=== PATIENT | male | born 1930 | race Caucasian/White ===

== ENCOUNTER → 2016-04-27 | Outpatient (CLI) | payer MEDICARE ==
[~2016-04-27] MED LIST: AC325T PO; ALBU2.5V12 INH; AMIO100T4 PO; AMIO200T7 PO; AML5T PO; AMLO10TA82 PO; CALC300T10 PO; CALC600T12 PO; CEFD300C PO; DOCU-243 PO; DOCU100C8 PO; GFN600TCR PO; HYDR-3702 PO; MAG30ORA PO; MAGN400O7 PO; METO25TA60 PO; MTP50T PO; ONDAN4ODT PO; POLY17PO2 PO; PRV20T PO; WRF3T PO
== END ==
LOC: LAB 15:16
PROVIDERS: ATTEND Family Medicine
DX: E03.4 Atrophy of thyroid (acquired) (principal)
CPT/HCPCS: 36415; 84436; 84439; 84443; 84481

== ENCOUNTER → 2016-05-02 | Outpatient (CLI) | payer MEDICARE ==
--- NOTE | 2016-05-02 13:55 | Diagnostic Imaging Report ---
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 EXAM: Axial CT scan of the brain performed without IV contrast. Coronal and sagittal reformatted images were created. COMPARISON: None. FINDINGS: There is no evidence of acute cerebral infarct, intracranial hemorrhage, or gross mass effect. There is focal and patchy areas of low-attenuation white matter changes seen throughout both cerebral hemispheres, suspected to represent chronic small vessel ischemic disease. There is brain parenchymal volume loss which is most pronounced involving the medial temporal lobe regions. The pituitary gland, sella, and suprasellar regions are unremarkable as visualized. There is normal sahni-white matter distinction. There is no significant midline shift or herniation. There is no evidence of hydrocephalus. The basal cisterns are unremarkable. The skull, extracranial soft tissue, and orbits are unremarkable. The paranasal sinuses are unremarkable. IMPRESSION: 1: There is no evidence of acute intracranial process. If there is continued concern for acute cerebral infarct, then MRI of the brain would better evaluate. 2: Likely brain parenchymal chronic small vessel ischemic disease. 3: Brain parenchymal volume loss with the medial temporal lobe regions affected the most. Dictated by: Dictated on workstation # [id number]
--- NOTE | 2016-05-02 13:59 | Diagnostic Imaging Report ---
PROCEDURE: CT chest without contrast. TECHNIQUE: Multiple contiguous axial images were obtained through the chest without the use of intravenous contrast. Indication: Followup left upper lobe consolidation, recent cerebral vascular infarction. Comparison: Chest x-ray 01/24/2016. Discussion: Exam is mildly degraded by patient respiratory motion. Subsegmental atelectasis is present within the dependent lungs. There is no residual consolidation identified within the left upper lobe. No underlying pulmonary nodule identified. The pulmonary arteries are dilated measuring up to 2.8 cm on the right and 3.0 cm on the left, consistent with underlying pulmonary artery hypertension. Mild aneurysmal dilatation of the ascending aorta measuring 4.4 cm. The aortic arch is normal in configuration. Mild scattered atherosclerotic disease is noted. Mild cardiomegaly is noted. No mediastinal, hilar, or axillary adenopathy. Heterogenous appearance of the liver is a nonspecific finding. There appears to be multiple small low-attenuation foci noted diffusely throughout the liver which could be seen with metastatic disease or other chronic processes such as cysts or Caroli's disease. Recommend clinical correlation and dedicated imaging of the liver with either ultrasound or multiphase contrast-enhanced CT. Probable atrophy of the bilateral kidneys is incompletely viewed. A cyst is noted within an otherwise contracted gallbladder. The remainder of the visualized upper abdomen is unremarkable. No acute osseous abnormality is identified. Impression: 1. Abnormal appearance of the liver is a nonspecific finding and metastatic disease is not excluded. Recommend clinical correlation and dedicated imaging. 2. Interval resolution of left upper lobe pneumonia. No underlying consolidation or pulmonary nodule is identified otherwise. 3. Mild aneurysmal dilatation of the ascending aorta measuring 4.4 cm. 4. Pulmonary artery hypertension. 5. Cholelithiasis. 6. Mild cardiomegaly. Dictated by: Dictated on workstation # [id number]
--- NOTE | 2016-05-02 14:20 | Diagnostic Imaging Report ---
PROCEDURE: US Carotid Duplex Bilateral. TECHNIQUE: Multiple real-time grayscale images were obtained over the carotid arteries in various projections bilaterally. Additional duplex Doppler and color Doppler images were also obtained. 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 COMPARISON: None. DISCUSSION: Sonographic evaluation of the common and internal carotid arteries and bilateral vertebral arteries was performed with a linear transducer. Images were assessed for grayscale appearance, spectral and color Doppler blood flow. Atherosclerotic plaque is noted within the bilateral carotid bifurcations. Normal flow velocities are noted within the bilateral internal and external carotid arteries consistent with less than 50% stenosis. ICA/CCA ratios measuring 0.8 bilaterally. Normal antegrade flow within the bilateral vertebral arteries. IMPRESSION: Atherosclerotic plaque within the bilateral internal carotid arteries contributing to less than 50% stenosis. Dictated by: Dictated on workstation # [id number]
== END ==
LOC: RAD 13:00
PROVIDERS: ATTEND Family Medicine
DX: I63.131 Cerebral infarction due to embolism of right carotid artery (principal); K76.89 Other specified diseases of liver; K80.20 Calculus of gallbladder without cholecystitis without obstruction
CPT/HCPCS: 70450; 71250; 93880

== ENCOUNTER → 2016-05-11 | Outpatient (CLI) | payer MEDICARE | LOC: RAD 13:51 | PROVIDERS: ATTEND Family Medicine | DX: Z53.20 Procedure and treatment not carried out because of patient's decision for unspecified reasons (principal) ==

== ENCOUNTER → 2016-05-19 | Outpatient (CLI) | payer MEDICARE | LOC: RAD 08:06 | PROVIDERS: ATTEND Family Medicine | DX: I48.0 Paroxysmal atrial fibrillation (principal); K76.89 Other specified diseases of liver; K80.20 Calculus of gallbladder without cholecystitis without obstruction; N28.1 Cyst of kidney, acquired | CPT/HCPCS: 76700; 93306 ==

== ENCOUNTER → 2016-05-30 | Outpatient (CLI) | payer MEDICARE | LOC: LAB 15:04 | PROVIDERS: ATTEND Family Medicine | DX: Z51.81 Encounter for therapeutic drug level monitoring (principal); Z79.01 Long term (current) use of anticoagulants | CPT/HCPCS: 36415; 85610 ==

== ENCOUNTER 2016-06-22 23:07 | Observation (INO) | payer MEDICARE ==
[~2016-06-22] VITALS: Ht 167.6 cm; Wt 90.0 kg
[2016-06-22 23:37] LABS: BASOPHILS % (AUTO) 1 % (0-2); EOSINOPHILS # (AUTO) 0.2 10^3uL; EOSINOPHILS % (AUTO) 3 % (0-4); LYMPHOCYTES # (AUTO) 1.7 X10^3; MEAN CORPUSCULAR HEMOGLOBIN 31.2 PG (26.0-34.0); MEAN CORPUSCULAR HGB CONC 33.2 g/dL (31.0-37.0); MEAN CORPUSCULAR VOLUME 94 FL (80-100); MEAN PLATELET VOLUME 10.8 FL (6.0-9.5); MONOCYTES # (AUTO) 0.6 X10^3; MONOCYTES % (AUTO) 10 % (3-11); NEUTROPHILS # (AUTO) 3.7 X10^3; NEUTROPHILS % (AUTO) 59 % (51-67); PLATELET COUNT 169 10^3uL (150-450); WHITE BLOOD COUNT 6.22 10^3uL (4.0-11.0)
[2016-06-22 23:46] LABS: ALBUMIN 3.7 g/dL (3.4-5.0); ALKALINE PHOSPHATASE 90 U/L (38-126); BUN/CREATININE RATIO 15 (10-20); CALCULATED IONIZED CALCIUM 3.8 mg/dL (3.8-4.6); CREATINE KINASE 50 U/L (55-170); TOTAL PROTEIN 7.3 g/dL (6.4-8.5)
[2016-06-23] MEDS ORDERED: NS IV 500 ML 500 ML IV SCH (00:45)
[2016-06-23] MEDS ORDERED: ACETAMINOPHEN 500 MG TAB (TYLENOL) PO ONE (00:45)
--- NOTE | 2016-06-23 02:02 | NUR ---
Pt arrives to 311 via cart from ED. Accompanied by granddaughter. Ambulates with staff assist x2 to weight chair and bed. Oriented patient and family to room and call light. When moving, pt grimaces and holds right side. States his ribs hurt at 2/10. Noted that right wrist is in a brace. See admission assessment for further details.
[2016-06-23] MEDS ORDERED: ONDANSETRON 2 MG/ML (Z0FRAN) 2 ML VIAL IV PRN (02:05)
[2016-06-23 02:16] VITALS: BP 147/66
--- NOTE | 2016-06-23 02:30 | NUR ---
Dr Sales assesses pt via remote monitoring.
--- NOTE | 2016-06-23 02:45 | NUR ---
Granddaughter, Lamar, provides further insight into patient's medications. States that Dr Smith placed pt on metoprolol for his essential tremors and that it is the newest medication that he has been taking.
[2016-06-23 03:56] VITALS: BP 132/62
--- NOTE | 2016-06-23 06:02 | NUR ---
Pt rests well since admission. States "it doesn't hurt too bad as long as I'm not moving." IVF infusing w/o difficulty. Resp even and non labored on RA.
[2016-06-23 06:51] LABS: ANION GAP 10.8 MEQ/L (3-15); BUN/CREATININE RATIO 16 (10-20)
--- NOTE | 2016-06-23 07:30 | NUR ---
Patient sitting up in recliner upon shift assessment. Alert and oriented X3. Reports right sided rib pain rated 6/10 on pain scale. PRN Tylenol provided. Telemetry intact and reflecting NSR with 1st degree block. Pulse 80 bpm. Lung sounds CTAB. Brace intact to right wrist. IVF infusing without difficulty. Updated on plan of care for shift. Call light in reach.
[2016-06-23] MEDS: ACETAMINOPHEN 325 MG TAB (TYLENOL) PO PRN ×3 (07:32→20:05)
[2016-06-23 07:57] VITALS: BP 143/70
[2016-06-23] MEDS ORDERED: NS FLUSH 10 ML PRN IV (08:25)
[2016-06-23] MEDS ORDERED: NS FLUSH 3 ML PRN IV (08:25)
[2016-06-23] MEDS: NS FLUSH 3 ML DAILY IV SCH (08:26)
[2016-06-23] MEDS ORDERED: AMIODARONE 200 MG (CORDARONE) TAB PO SCH (09:00)
--- NOTE | 2016-06-23 10:46 | NUR ---
MED REC COMPLETE--current med list obtained from list provided by patient's PCP and retail pharmacy.
[2016-06-23 11:35] VITALS: BP 133/68
[2016-06-23 15:36] VITALS: BP 150/62
[2016-06-23] MEDS ORDERED: warFARin 3 MG (COUMADIN) TAB PO SCH (18:00)
--- NOTE | 2016-06-23 18:10 | NUR ---
Patient remains bradycardic throughout day shift. Dr. Campos aware. Reports right sided rib pain with movement. Denies dizziness with standing. PT reports to this nurse that patient was unsteady on feet during assessment. Rests in long intervals this afternoon. TABS intact for safety but patient using call light appropriately. Call light in reach.
[2016-06-23 19:49] VITALS: BP 137/60
[2016-06-23] MEDS ORDERED: PRAVASTATIN 20 MG (PRAVACHOL) TABLET PO SCH (21:00)
[2016-06-24 00:05] VITALS: BP 128/72
[2016-06-24 04:02] VITALS: BP 135/79
[2016-06-24 05:36] LABS: BASOPHILS % (AUTO) 1 % (0-2); EOSINOPHILS # (AUTO) 0.2 10^3uL; EOSINOPHILS % (AUTO) 3 % (0-4); LYMPHOCYTES # (AUTO) 1.3 X10^3; MEAN CORPUSCULAR HEMOGLOBIN 30.8 PG (26.0-34.0); MEAN CORPUSCULAR HGB CONC 33.5 g/dL (31.0-37.0); MEAN CORPUSCULAR VOLUME 92 FL (80-100); MEAN PLATELET VOLUME 10.9 FL (6.0-9.5); MONOCYTES # (AUTO) 0.5 X10^3; MONOCYTES % (AUTO) 10 % (3-11); NEUTROPHILS # (AUTO) 3.6 X10^3; NEUTROPHILS % (AUTO) 64 % (51-67); PLATELET COUNT 164 10^3uL (150-450); WHITE BLOOD COUNT 5.68 10^3uL (4.0-11.0)
[2016-06-24 06:07] LABS: ANION GAP 11.7 MEQ/L (3-15)
--- NOTE | 2016-06-24 06:09 | NUR ---
Pt rests in long intervals throughout the night. Remains bradycardic with a first degree heart block per telemetry. PRN tylenol provided for right rib pain "it hurts a little when I move, but it's getting better." SL intact. Resp even and non labored on RA.
--- NOTE | 2016-06-24 06:27 | NUR ---
Assisted pt to the bathroom. while coming out of the bathroom, pt states "I need to sit down." Pt very weak, almost falls. Ambulates to chair with staff assist x2 and walker.
[2016-06-24 07:34] VITALS: BP_SYST 70; BP_SYST 98; BP_DIAS 34; BP_DIAS 50
[2016-06-24] MEDS ORDERED: AMIODARONE 200 MG (CORDARONE) TAB PO SCH (09:00)
[2016-06-24] MEDS: NS FLUSH 3 ML DAILY IV SCH (09:00)
[2016-06-24 11:16] VITALS: BP 125/81
--- NOTE | 2016-06-24 13:20 | NUR ---
Verbalizes understanding of dismissal instructions. Granddaughter also verbalizes understanding of instructions.
--- NOTE | 2016-06-24 13:35 | NUR ---
Dismissed to home via w/c with granddaughter. Alert and oriented. Skin pale, w/d. Walked half round in [place] with PT this morning - tolerated well. Encouraged to stand up slowly from sitting position due to low orthostatic BP. Reminded to only take amounts of meds ordered on dismissal. Granddaughter states will help with med administration.
== END 2016-06-24 13:35 | disposition home or self-care (01) ==
LOC: ED 23:09 → UNDOADMOB 06-23 01:32 → OBSVTOIN 06-23 01:32 → MED/SURG 06-23 01:32 → INTOOBSV 06-23 01:32
PROVIDERS: ADMIT Hospitalist; ATTEND Hospitalist
DX: I95.1 Orthostatic hypotension (principal); R00.1 Bradycardia, unspecified; I44.0 Atrioventricular block, first degree; E86.0 Dehydration; R73.9 Hyperglycemia, unspecified; I48.91 Unspecified atrial fibrillation; I71.2 Thoracic aortic aneurysm, without rupture; I12.9 Hypertensive chronic kidney disease with stage 1 through stage 4 chronic kidney disease, or unspecified chronic kidney disease; N18.9 Chronic kidney disease, unspecified; Z79.01 Long term (current) use of anticoagulants
CPT/HCPCS: 36415; 70450; 71010; 71100; 73110; 80048; 80053; 82550; 82553; 84443; 84484; 85025; 85610; 85730; 93005; 96360; 96361; 97110; 97116; 97161; 99285; A9270; G0378; J7030; J7040; 93010; 99218